=== PATIENT | male | born 1940 | race Caucasian/White ===

== ENCOUNTER 2021-01-15 21:06 | Emergency (ER) | payer MEDICARE, MEDICAID, OTHER, SELFPAY ==
--- NOTE | ~2021-01-15 | CT_ITS ---
EXAMINATION: NONCONTRAST HEAD CT NONCONTRAST CERVICAL SPINE CT INDICATION INFORMATION: Fall COMPARISON: None TECHNIQUE: Separate noncontrast CT examinations of the head and cervical spine were performed. Coronal and sagittal images were created for each examination at the technologist workstation. This CT examination was performed using dose optimization techniques as appropriate, variously including the following: *Automated exposure control *Adjustment of mA and/or kV according to patient size (this includes techniques or standardized protocols for targeted exams where dose is matched to indication/reason for exam; i.e. extremities or head) *Use of iterative reconstruction technique DLP: 1514 mGy-cm FINDINGS: Head: There is no evidence of acute intracranial hemorrhage or territorial infarction. No abnormal mass effect or midline shift is seen. Abarac to white matter differentiation is well preserved. No extra-axial fluid collections are identified. No hydrocephalus. Proportional prominence of the ventricles and sulcal spaces is consistent with mild volume loss. Patchy periventricular and deep white matter hypoattenuation is consistent with mild small vessel ischemic changes. There is left supraorbital swelling with laceration. No calvarial fracture.. The mastoid air cells and visualized portions of the paranasal sinuses are well aerated. Cervical spine: There is anatomic alignment of the vertebral bodies and posterior elements. The atlantoaxial and atlantooccipital articulations are intact. Vertebral body heights are maintained. There is multilevel intervertebral disc space narrowing with endplate osteophyte formation and facet arthropathy. No evidence of acute fracture. No prevertebral soft tissue swelling. Visualized portions of the lung apices are unremarkable. The thyroid gland is unremarkable. CT/CT cervical spine wo con IMPRESSION: 1. No acute intracranial finding. Left supraorbital laceration. 2. No fracture or malalignment of the cervical spine. Moderate degenerative change.
[2021-01-15 21:36] VITALS: BP 174/87; PULSE 88; RESP 18; TEMP 36.6; O2SAT 98; BMI 27.8
[2021-01-15 21:56] VITALS: BP 174/87; PULSE 88; RESP 18; TEMP 36.7; O2SAT 98
[2021-01-15] MEDS: Lidocaine HCl 2 % MPF 5 ML VIAL SUBCUT (22:57)
--- NOTE | 2021-01-15 23:27 | ED.WOUNDLAC ---
HPI - Wound/Laceration General Chief Complaint: Wound/Laceration Stated Complaint: Fall/Lac Time Seen by Provider: 01/15/21 22:34 Source: patient Mode of arrival: ambulatory Limitations: no limitations History of Present Illness HPI narrative: Patient is a 80-year-old male past medical history of diabetes and hypertension who states he does take 81 mg of aspirin daily (denies any other blood thinners), states he tripped in the side[employer]k cement around 3:30 today cut his left forehead. It was an unwitnessed fall however the patient denies losing consciousness. He denies headache, dizziness, blurry vision, changes in his vision, neck pain back pain or any other complaints. Related Data Allergies Allergy/AdvReac Type Severity Reaction Status Date / Time No Known Allergies Allergy Verified 01/15/21 21:40 Review of Systems Review of Systems: Yes all other systems are reviewed and are negative ENT: Reports Normal hearing present Neurologic: Reports Normal hearing present COUNT INCLUDES THE [facility] Past Medical History Medical History Diabetes HTN (hypertension) Social History Social History Advance Directives: No Advance Directives Information Provided: Yes Physical Exam Vital Signs: Vital Signs: Last Vital Signs Temp 98.0 F 01/15/21 21:56 Pulse 88 01/15/21 21:56 Resp 18 01/15/21 21:56 BP 174/87 H 01/15/21 21:56 Pulse Ox 98 01/15/21 21:56 Body Mass Index 27.8 Const: General: cooperative, healthy appearing, comfortable and no acute distress Nutritional Appearance: average body habitus Orientation/consciousness: patient oriented x3 Limitations: no limitations HENMT: Head: Yes normocephalic, No Mar's sign, Yes contusion, Yes laceration (Left forehead 6 cm; of which 2cm superficial and 4cm is a deeper wound), No palpable skull fracture, No raccoon eyes and Yes periorbital ecchymosis Eyes: Other: mild Bruising and swelling around left eye and eyebrow Visual Abdalla: normal visual abdalla by confrontation Alignment and Position: alignment normal Conjunctivae: conjunctivae normal Sclerae: sclerae normal Corneas: corneas normal Pupils: Equal, round and reactive pupils present EOM: EOMs intact bilaterally Neck: Neck: Yes normal visual inspection, Yes full ROM and Yes supple Resp: Effort & Inspection: normal respiratory effort and able to speak in complete sentences Back/Spine/Pelvis: Cervical Spine: cervical ROM normal Thoracic/Lumbar Spine: thoracic and lumbar spine normal to inspection and thoraco-lumbar ROM normal Neuro: General: patient oriented x3 Cranial nerves: Yes CN's II-XII intact bilaterally, Yes Facial sensation intact/muscles of mastication intact, Yes Equal, round and reactive pupils present, Yes Bilaterally intact EOM present, Yes Nystagmus not present, Yes Normal facial strength present, Yes Midline tongue present, Yes Symmetric palate elevation present, Yes Normal hearing present, Yes Ability to bilaterally rotate head present and Yes Ability to bilaterally elevate shoulders present Cognition (Neuro): normal cognition Gait exam (Neuro): Normal gait present Procedures Laceration Laceration 1: Site: face (Left supraorbital) Side (If applicable): left Size (cm): 6 Description: linear Depth: simple, single layer Amount of anesthesia used (mL): 3 Pre-repair: wound explored and irrigated extensively Skin layer closed with: vicryl Size (cm): 6-0 Number of sutures: 4 Technique: simple, interrupted MDM - Wound/Laceration Imaging Data CT scan - head: Attestation: I personally reviewed and interpreted this imaging study as follows: Radiologist's impression: [address] [place], [place] [address]DU Scan ReportSigned Patient: Clayton Saez Jr [facility]#: [id number]: 2Acct:[id number]/Sex: 80 / MADM Date: 01/15/21Loc: Lv Dr: Ordering Physician: Dimple Henriquez PA-C Date of Service: 01/15/21 Procedure(s): CT cervical spine wo con Accession Number(s): [id number] cc: Dimple Henriquez PA-C~ EXAMINATION: NONCONTRAST HEAD CT NONCONTRAST CERVICAL SPINE CT INDICATION INFORMATION: Fall COMPARISON: None TECHNIQUE: Separate noncontrast CT examinations of the head and cervical spine were performed. Coronal and sagittal images were created for each examination at the technologist workstation. This CT examination was performed using dose optimization techniques as appropriate, variously including the following: *Automated exposure control *Adjustment of mA and/or kV according to patient size (this includes techniques or standardized protocols for targeted exams where dose is matched to indication/reason for exam; i.e. extremities or head) *Use of iterative reconstruction technique DLP: 1514 mGy-cm FINDINGS: Head: There is no evidence of acute intracranial hemorrhage or territorial infarction. No abnormal mass effect or midline shift is seen. Abarca to white matter differentiation is well preserved. No extra-axial fluid collections are identified. No hydrocephalus. Proportional prominence of the ventricles and sulcal spaces is consistent with mild volume loss. Patchy periventricular and deep white matter hypoattenuation is consistent with mild small vessel ischemic changes. There is left supraorbital swelling with laceration. No calvarial fracture.. The mastoid air cells and visualized portions of the paranasal sinuses are well aerated. Cervical spine: There is anatomic alignment of the vertebral bodies and posterior elements. The atlantoaxial and atlantooccipital articulations are intact. Vertebral body heights are maintained. There is multilevel intervertebral disc space narrowing with endplate osteophyte formation and facet arthropathy. No evidence of acute fracture. No prevertebral soft tissue swelling. Visualized portions of the lung apices are unremarkable. The thyroid gland is unremarkable. CT/CT cervical spine wo con IMPRESSION: 1. No acute intracranial finding. Left supraorbital laceration. 2. No fracture or malalignment of the cervical spine. Moderate degenerative change. Dictated By:Daquan Sanchez MDSigned By:<Electronically signed by Daquan Sanchez MD in OV>01/15/21 2318 DD/ 2235TD/TT: Official Greeter: NILDA Discharge Plan Discharge Clinical Impression: Laceration Patient Disposition: Home, Self-Care Instructions: Head Injury (ED) Additional Instructions: As discussed, please be aware of red flag warning signs and when to return to the emergency department, sudden change and hearing, vision, acute onset of a headache, dizziness, nausea or vomiting. Please see attached instructions on monitoring yourself over the next few days to weeks. Please have the sutures removed in 5-7 days, you can do this at your PCP's office or any urgent care or emergency department. We have also given you a tetanus shot today.
[2021-01-15] MEDS: Diphth,Pertus(ACell),Tet Adult 0.5 ML SYRINGE IM (23:43)
== END 2021-01-16 00:06 | disposition home or self-care (01) ==
PROVIDERS: Emergency Provider Internal Medicine; PCP Student in an Organized Health Care Education/Training Program
DX: S01.81XA Laceration without foreign body of other part of head, initial encounter (principal); W10.1XXA Fall (on)(from) sidewalk curb, initial encounter; E11.9 Type 2 diabetes mellitus without complications; I10 Essential (primary) hypertension; Y93.01 Activity, walking, marching and hiking; Y92.414 Local residential or business street as the place of occurrence of the external cause; Y99.9 Unspecified external cause status
CPT/HCPCS: 12014; 70450; 72125; 90471; 90715; 99284

== ENCOUNTER 2021-07-23 09:32 | Outpatient (REF) | payer MEDICARE, MEDICAID, SELFPAY ==
--- NOTE | 2021-07-23 15:06 | MHC.AU.ANR ---
Adult Audiological Evaluation Date of Visit: 07/23/21 Reason for Appointment: Audiological evaluation due to concern for decreased hearing. Mr. Saez reports that his hearing has been gradually decreasing. He notes that he has to turn the TV up and often asks for repetition because he can't understand what people are saying. 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 Mr. Saez also notes that he had earwax flushed from his ears yesterday at his PCP's office. Does patient feel they have a hearing loss?: Yes If Yes, Which Ear?: Both Ears When Was Hearing Difficulty First Noticed?: ~5 years ago Has hearing been tested previously?: No Hearing Handicap Inventory: HHIE SCORE: 36 Based on HHIE score, patient has: Severe perceived hearing handicap Ear History: Family History of Hearing Loss?: Yes: Mother History of Ear Wax Buildup: Both Ears History of occupational noise exposure?: Yes: DJ Medical History: Medical History: Diabetes, High Blood Pressure Medication List: Metformin, medication for hypertension, Aspirin 81 mg Otoscopy: Right Ear: Partially occluding cerumen removed w/suction. White, opaque TM Left Ear: Completely occluding cerumen removed with suction Tympanometry: Tympanometry performed due to: To assess integrity of the middle ear system Right Ear: Reduced Middle Ear Compliance (Type As) Left Ear: Normal Middle Ear System (Type A) Hearing Evaluation: Transducer(s) Used: Insert Earphones Method: Conventional Audiometry Stimuli Used: Pure Tones Right Ear: Description of Hearing: Moderate sloping to severe sensorineural hearing loss from 250-8000 Hz. Left Ear: Description of Hearing: Moderate sloping to severe sensorineural hearing loss from 250-8000 Hz. Speech Recognition Threshold (SRT): Method Used: Monitored Live Voice Stimuli Used: Spondee Words Right Ear: 55 dBHL Left Ear: 55 dBHL Word Discrimination: Method: Recorded Lists Word Lists Used: NU-6 Right Ear: 64% at 90 dBHL Left Ear: 64% at 90 dBHL Most Comfortable Level (MCL): Right Ear: 90 dBHL Left Ear: 90 dBHL Recommendations: Audiological re-evaluation in one year. Trial with amplification is recommended. Binaural hearing aid use is highly recommended based on the degree of Mr. Saez's hearing loss. Discussed hearing aid options. It was recommended that he contact his health insurance company to find out of he has any hearing aid benefits, and if he does, where he can go to use those benefits. Mr. Saez's binaural speech understanding scores were significantly improved compared to his monaural scores, therefore it is important for Mr. Saez to use hearing aids in both ears. Advised that he would likely benefit more from a pair of l lower level technology hearing aids, rather than one more advanced technology hearing aid. Mr. Saez was welcomed to return to further discuss hearing aids if he decides he would like to purchase hearing aids through our clinic. Diagnosis: Primary Diagnosis: H90.3 Bilateral Sensorineural Hearing Loss Secondary Diagnosis: H61.23 Impacted Cerumen, Bilateral Services Performed: Services Performed: Comprehensive Audiological Evaluation (CPT 32322) Tympanometry (CPT 25901) Signature: Provider: Rachel Viveros, CCC-A
--- NOTE | 2021-07-23 15:08 | MHC.AU.MED ---
Medical Clearance for Hearing Instrumentation Date: 07/24/21 Patient Name: Clayton Saez Jr Date of : 1940 Referring Provider: Mary Grace Chino NP We have seen your patient on 07/24/21 and have determined that they are a candidate for amplification (See accompanying report). Specifically, they would benefit from: Hearing aid use in both ears There is a statute that addresses Medical Evaluation Requirements prior to fitting a patient with a hearing aid. According to [place] statute [facility] CMR:6.03(1), (a) General. Except as provided in 265 CMR 6.03(1)(b), a city superintendent of schools shall not sell a hearing aid unless the prospective user has presented to the city superintendent of schools a written statement signed by a licensed physician that states that the patient's hearing loss has been medically evaluated and the patient may be considered a candidate for a hearing aid. The medical evaluation must have taken place within the preceding six months. Please note: Due to the [place] Statute referenced above, we cannot accept a signature other than that of a licensed physician. SHOE SALESPERSON and BLAIR signatures cannot be accepted. I am in agreement with the above recommendation. There is no medical contraindication for hearing instrumentation. Physician Signature Date Physician Name (Printed)
== END 2021-07-23 09:33 | disposition home or self-care (01) ==
LOC: HO.SH 09:32
PROVIDERS: Visit Provider Nurse Practitioner Primary Care
DX: H90.3 Sensorineural hearing loss, bilateral (principal); H61.23 Impacted cerumen, bilateral
CPT/HCPCS: 92557; 92567

== ENCOUNTER 2023-05-19 09:39 | Outpatient (REF) | payer MEDICARE, MEDICAID, SELFPAY ==
[2023-05-19 11:30] LABS: MANUAL DIFF FLAG NO
[2023-05-19 11:45] LABS: Basophils Percent Auto 0.6 % (0-2); Eosinophils Absolute Auto 0.3 X10*3/uL (0.0-0.4); Eosinophils Percent Auto 4.3 % (0-4); Hematocrit 39.7 % (42.0-52.0); Hemoglobin 13.4 g/dl (14.0-18.0); Imm Gran Abs Auto 0.06 X10*3/uL (0.00-0.03); Imm Gran Pct Auto 0.9 % (0.0-0.4); Lymphocytes Absolute Auto 1.6 X10*3/uL (1.2-4.9); Mean Corpuscular HGB Conc 33.8 g/dl (31.0-36.0); Mean Corpuscular Hemoglobin 30.7 pg (27.0-33.0); Mean Corpuscular Volume 90.8 fL (80.0-98.0); Mean Platelet Volume 11.3 fL (9.4-12.4); Monocytes Absolute Auto 0.6 X10*3/uL (0.1-1.2); Monocytes Percent Auto 9.5 % (2-11); Neutrophils Absolute Auto 4.2 x10*3/uL (2.0-8.3); Neutrophils Percent Auto 61.7 % (45-73); Platelet Count 189 X10*3/uL (160-400); Red Blood Count 4.37 X10*6/uL (4.60-5.80); Red Cell Distribution Width 12.4 % (11.0-16.0); White Blood Count 6.8 X10*3/uL (4.8-10.8)
[2023-05-19 12:19] LABS: Anion Gap 14 (12-20); Blood Urea Nitrogen 27 mg/dL (9-16); Calcium 9.5 mg/dL (8.4-10.2); Carbon Dioxide 22 mmol/L (22-29); Chloride 104 mmol/L (96-108); Estimated Glomerular Filt Rate 46; Potassium 4.7 mmol/L (3.3-5.1); Sodium 135 mmol/L (135-145); Uric Acid 5.8 mg/dL (3.4-7.0)
[2023-05-19 12:24] LABS: Vitamin D 25-OH Total 40.5 ng/mL (>30)
[2023-05-19 13:12] LABS: Creatinine Urine 130.65 mg/dL
[2023-05-19 13:40] LABS: Appearance Urine Clear; Color Urine Yellow; Glucose Urine UA Negative (Negative); Leukocyte Esterase Urine Negative (Negative); Nitrite Urine Negative (Negative); Urine Blood Negative (Negative); Urine Ketones Trace mg/dL (Negative); Urine Protein >=1000 (4+) mg/dL (Neg-Trace)
[2023-05-19 13:49] LABS: Bacteria Urine None Seen (None Seen); Hyaline Casts Urine 0-2 /LPF (0-2); RBC Urine 0-2 /HPF (0-2); Squamous Epithelial Cell Urine 0-2 /HPF (0-2); WBC Urine 0-5 /HPF (0-5)
[2023-05-19 13:52] LABS: Protein/Creatinine Ratio, Ur 3.81 (<0.2); Total Protein Urine Random 498 mg/dL (<12)
== END 2023-05-19 09:40 | disposition home or self-care (01) ==
LOC: HO.HHCL 09:39
PROVIDERS: PCP Nurse Practitioner Primary Care; Visit Provider Physician Assistant
DX: N18.31 Chronic kidney disease, stage 3a (principal); E55.9 Vitamin D deficiency, unspecified
CPT/HCPCS: 36415; 80051; 81001; 82306; 82310; 82565; 84156; 84520; 84550; 85025

== ENCOUNTER 2023-12-09 09:49 | Outpatient (REF) | payer MEDICARE, SELFPAY ==
[2023-12-09 11:31] LABS: Appearance Urine Clear; Color Urine Yellow; Glucose Urine UA >=1000 mg/dL (Negative); Leukocyte Esterase Urine Negative (Negative); Nitrite Urine Negative (Negative); PH 6.5 (5.0-9.0); Specific Gravity - Urine 1.025 (1.005-1.025); UMIC TRIGGER UA YES; Urine Blood Negative (Negative); Urine Ketones Trace mg/dL (Negative); Urine Protein 300 (3+) mg/dL (Neg-Trace)
[2023-12-09 11:36] LABS: Bacteria Urine None Seen (None Seen); Hyaline Casts Urine 0-2 /LPF (0-2); RBC Urine 0-2 /HPF (0-2); Squamous Epithelial Cell Urine 0-2 /HPF (0-2); WBC Urine 0-5 /HPF (0-5)
[2023-12-09 11:41] LABS: MANUAL DIFF FLAG NO
[2023-12-09 11:47] LABS: Basophils Absolute Auto 0.1 X10*3/uL (0.0-0.2); Basophils Percent Auto 0.8 % (0-2); Eosinophils Absolute Auto 0.3 X10*3/uL (0.0-0.4); Eosinophils Percent Auto 4.3 % (0-4); Hematocrit 45.6 % (42.0-52.0); Hemoglobin 15.1 g/dl (14.0-18.0); Imm Gran Abs Auto 0.07 X10*3/uL (0.00-0.03); Imm Gran Pct Auto 0.9 % (0.0-0.4); Lymphocytes Absolute Auto 2.1 X10*3/uL (1.2-4.9); Mean Corpuscular HGB Conc 33.1 g/dl (31.0-36.0); Mean Corpuscular Hemoglobin 30.4 pg (27.0-33.0); Mean Corpuscular Volume 91.9 fL (80.0-98.0); Mean Platelet Volume 11.2 fL (9.4-12.4); Monocytes Absolute Auto 0.7 X10*3/uL (0.1-1.2); Monocytes Percent Auto 8.5 % (2-11); Neutrophils Absolute Auto 4.7 x10*3/uL (2.0-8.3); Neutrophils Percent Auto 59.5 % (45-73); Platelet Count 232 X10*3/uL (160-400); Red Blood Count 4.96 X10*6/uL (4.60-5.80); Red Cell Distribution Width 13.2 % (11.0-16.0); White Blood Count 7.9 X10*3/uL (4.8-10.8)
[2023-12-09 12:02] LABS: Estimated Average Glucose 126 mg/dL
[2023-12-09 12:10] LABS: Anion Gap 16 (12-20); Blood Urea Nitrogen 29 mg/dL (9-16); Calcium 9.8 mg/dL (8.4-10.2); Carbon Dioxide 24 mmol/L (22-29); Chloride 103 mmol/L (96-108); Cholesterol 187 mg/dL (<200); Estimated Glomerular Filt Rate 41; HDL Cholesterol 53 mg/dL (>40); Iron 103 mcg/dL (45-160); LDL Cholesterol Calculated 105 mg/dL (<100); Magnesium 1.6 mg/dL (1.6-2.6); Percent Iron Saturation 30 % (15-50); Potassium 4.7 mmol/L (3.3-5.1); Sodium 138 mmol/L (135-145); Total Iron Binding Capacity 347 mcg/dL (228-428); Triglycerides 149 mg/dL (<150); Unsaturated Iron Binding 244 ug/dL
[2023-12-09 12:25] LABS: Vitamin D 25-OH Total 45.3 ng/mL (>30)
[2023-12-09 12:35] LABS: Parathyroid Hormone Intact 141.2 pg/mL (8.7-77.1)
[2023-12-09 12:49] LABS: Creatinine Urine 92.73 mg/dL
[2023-12-09 13:09] LABS: Protein/Creatinine Ratio, Ur 3.17 (<0.2); Total Protein Urine Random 294 mg/dL (<12)
== END 2023-12-09 09:50 | disposition home or self-care (01) ==
LOC: HO.HHCL 09:49
PROVIDERS: Visit Provider Physician Assistant
DX: Z13.89 Encounter for screening for other disorder (principal)
CPT/HCPCS: 36415; 80051; 80061; 81001; 82306; 82310; 82565; 82570; 83036; 83540; 83735; 83970; 84156; 84520; 85025

== ENCOUNTER 2024-06-29 10:11 | Outpatient (REF) | payer MEDICARE, SELFPAY ==
[2024-06-29 12:20] LABS: Valproate 64.7 mcg/mL (50.0-100.0)
[2024-06-29 12:59] LABS: Alanine Aminotransferase 15 U/L (0-40); Albumin Level 4.5 g/dL (3.5-5.0); Alkaline Phosphatase 67 U/L (39-117); Aspartate Amino Transferase 21 U/L (5-37); Bilirubin Direct 0.2 mg/dL (0.0-0.5); Bilirubin Total 0.5 mg/dL (0.0-1.0); Cholesterol 207 mg/dL (<200); HDL Cholesterol 53 mg/dL (>40); LDL Cholesterol Calculated 120 mg/dL (<100); Total Protein 7.5 g/dL (6.5-8.0); Triglycerides 172 mg/dL (<150)
== END 2024-06-29 10:12 | disposition home or self-care (01) ==
LOC: HO.HHCL 10:11
PROVIDERS: Visit Provider Nurse Practitioner Primary Care
DX: E11.9 Type 2 diabetes mellitus without complications (principal); E78.5 Hyperlipidemia, unspecified; E78.00 Pure hypercholesterolemia, unspecified; F31.9 Bipolar disorder, unspecified
CPT/HCPCS: 36415; 80061; 80076; 80164

== ENCOUNTER 2025-07-25 10:20 | Outpatient (AMB) | payer MEDICARE, MEDICAID, SELFPAY ==
[2025-07-25 10:32] VITALS: BP 158/70; PULSE 58; O2SAT 96; BMI 27.1
--- NOTE | 2025-07-25 10:32 | HO.NEPHOV ---
Vital Signs 07/25/25 10:32 Height 6 ft Weight 200 lb BMI 27.1 BP 158/70 H Blood Pressure Location Lt brachial Position Sitting Pulse 58 Pulse Source Pulse Oximeter Pulse Oximetry (%) 96 Oxygen Delivery Method Room Air Intake Visit Reasons: ENP: CKD STG 3, confirmed Leak Detection Engineer Required: No Accompanied by: Spouse Allergies No Known Allergies Allergy (Verified 07/25/25 10:34) Medication List - Last Reconciled 07/25/25 by Christopher Montanez MD aspirin 81 mg PO DAILY atorvastatin 80 mg PO DAILY empagliflozin (Jardiance) 25 mg PO DAILY losartan 100 mg PO DAILY metformin 1,000 mg PO BID nifedipine ER 90 mg PO DAILY omega-3 acid ethyl esters 1 cap PO BID valproic acid 500 mg PO BID HPI Comments Details: The patient is an 85-year-old male referred for evaluation of CKD He was previously seen by 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 He has been referred to reestablish renal care. History of diabetes mellitus for more than 20 years. Complicated by non proliferative diabetic retinopathy. The patient also reports a history of glaucoma, History of bipolar disorder but denies taking any lithium [facility] Medical History (Updated 07/25/25 @ 10:44 by Christopher Montanez MD) Type 2 diabetes mellitus with hyperlipidemia Proteinuria Hypertensive heart disease without CHF (congestive heart failure) Hypolipidemia Diabetic nephropathy associated with type 2 diabetes mellitus Stage 3 chronic kidney disease Edentulous Arthropathy Pure hypercholesterolemia Impacted cerumen Bipolar disorder Diabetes HTN (hypertension) Review of Systems Const Denies fever(s) and Denies weight loss ENT Details: Hard of hearing Card Denies chest pain Resp Denies cough and Denies hemoptysis GI Denies abdominal pain, Denies diarrhea and Denies nausea Musc Denies back pain Neuro Denies focal weakness Physical Exam Vital Signs: Last Vital Signs Pulse 58 07/25/25 10:32 BP 158/70 H 07/25/25 10:32 Pulse Ox 96 07/25/25 10:32 Oxygen Delivery Method Room Air 07/25/25 10:32 BMI result Body Mass Index 27.1 Hard of hearing Comfortable Neck supple no JVD. Lungs entry equal no rales. Heart S1-S2 heard no gallop or rub. Abdomen soft nontender. Neuro alert awake oriented. No asterixis. Extremities no edema. Results Reviewed Nephrology Results: Hgb, (14.0-18.0) 15.1 g/dl 24 WBC, (4.8-10.8) 7.9 X10*3/uL 24 Plt Count, (160-400) 232 X10*3/uL /24 Sodium, (135-145) 138 mmol/L /24 Potassium, (3.3-5.1) 4.7 mmol/L 24 Chloride, (96-108) 103 mmol/L 24 Carbon Dioxide, (22-29) 24 mmol/L 24 BUN, (9-16) 29 mg/dL H 24 Creatinine, (0.5-1.4) 1.64 mg/dL H 24 Calcium, (8.4-10.2) 9.8 mg/dL /24 PTH Intact, (8.7-77.1) 141.2 pg/mL H 24 Urine Protein, (Neg-Trace) 300 (3+) mg/dL H 24 Urine Creatinine 92.73 mg/dL 24 Protein/Creatinin Ratio, (<0.2) 3.17 H 24 Assessment & Plan Assessment & Plan (1) Stage 3 chronic kidney disease: Code(s): N18.30 - Chronic kidney disease, stage 3 unspecified Category: Medical Plan Elderly man with longstanding diabetes mellitus and hypertension with chronic kidney disease. Based on history he has stage III CKD. Baseline needs to be determined. Goal is to slow the progression of renal disease. Discussed importance of control of blood sugar and maintaining A1c less than 7%. Maintain blood pressure less than 130/80. Agree with current dose of losartan for renal protection along with Jardiance. Baseline workup ordered as below. You returned to the office once the workup is completed I will keep you updated. Orders: Orders Complete Blood Count Auto Diff Today N18.30 - Chronic kidney disease, stage 3 unspecified Parathyroid Hormone Intact Today N18.30 - Chronic kidney disease, stage 3 unspecified Total Protein Urine Random Today N18.30 - Chronic kidney disease, stage 3 unspecified US renal BI Today N18.30 - Chronic kidney disease, stage 3 unspecified Comprehensive Met. Panel Today N18.30 - Chronic kidney disease, stage 3 unspecified Creatinine Urine Today N18.30 - Chronic kidney disease, stage 3 unspecified Vitamin D 25-OH Total Today N18.30 - Chronic kidney disease, stage 3 unspecified UA and rflx microscopic Today N18.30 - Chronic kidney disease, stage 3 unspecified Osmolality, Serum Today N18.30 - Chronic kidney disease, stage 3 unspecified Coding Level of Care Code New Pt Level 4 (96725) Diagnoses Stage 3 chronic kidney disease N18.30
--- OUTSIDE RECORDS SUMMARY | 2025-07-25 12:31 | XMS_ITS | Encounter Summary ---
Author Organization [employer] Address [address] [place] [address] Care Team Providers Care Link Fabric Machine Operator Name Role Phone Mary Grace Chino Primary Care Provider [phone] Km Mooney Unavailable Encounter Details Date Type Department Care Team (Late st Contact Info) Description 11/11/2022 Orders Only [facility] MEDICINE [address] [place] [address] Irina Hunt, RN [address] [place] [address] Social History Tobacco Use Types Packs/Day Years Used Date Smoking Tobacco: Never Assessed Sex and Gender Information Value Date Recorded Sex Assigned at Male 07/26/2022 10:17 AM EDT Legal Sex Male 10:17 AM EDT Gender Identity Male 07/26/2022 10:17 AM EDT Sexual Orientation Straight 07/26/2022 10 :17 AM EDT documented as of this encounter Plan of Treatment Not on file documented as of this encounter Visit Diagnoses Not on filedocumented in this encounter Care Teams Link Fabric Machine Operator Relationship Specialty Start Date End Date Mary Grace Chino ANP [address] [place] [address] PCP - General Family Medicine 03/11/21 Km Mooney [address] [place], [place] [address] [address] 01/11/25 01/11/25 documented as of this encounter
--- OUTSIDE RECORDS SUMMARY | 2025-07-25 12:31 | XMS_ITS | Encounter Summary ---
Author Organization [employer] Address [address] [place] [address] Care Team Providers Care Hydrogen Cell Tender Name Role Phone Mary Grace Chino Primary Care Provider [phone] Km Mooney Unavailable Reason for Visit * Reason Comments Med Refill Encounter Details Date Type Department Care Team ([facility] Contact Info) Description 12/18/2024 Refill [facility] MEDICINE [address] [place] [address] Mary Grace Chino ANP [address] [place] [address] Social History Tobacco Use Types Packs/Day Years Used Date Smoking Tobacco: Never Smokeless Tobacco: Never Alcohol Use Standard Drinks/Week Comments Not Currently 0 (1 standard drink = 0.6 oz pur e alcohol) Depression Answer Date Recorded Patient Health Questionnaire-9 Score 0 05/10/2024 Patient Health Questionnaire-9 Score 0 05/10/2024 Last PHQ-9: Questionnaire Data Not on file 0 05/10/2024 Housing Stability Answer Date Recorded What is your housing situation today? I have ana gooden 05/10/[address] you li ve. Do you have problems with any of the following? Not on file 05/10/2024 Food Insecurity Answer Date Recorded Within the past 12 months, y ou worried that your food would run out before you got money to buy more: Never True 08/02/2023 Within the past 12 months,th e food you bought just didn't last and you didn't have enough money to get more: Never True 03/2023 Transportation Answer Date Recorded In the past 12 months, has l ack of transportation kept you from medical appts, meetings, work or from getting things needed for daily living? No 08/02/2023 Utilities Answer Date Recorded In the past 12 months, has t he electric, gas, oil or water company threatened to shut off services in your home? No 08/02/2023 Depression Answer Date Recorded Patient Health Questionnaire-2 Score 0 05/10/2024 Sex and Gender Information Value Date Recorded Sex Assigned at Male 07/26/2022 10:17 AM EDT Legal Sex Male 10:17 AM EDT Gender Identity Male 07/26/2022 10:17 AM EDT Sexual Orientation Straight 07/26/2022 10 :17 AM EDT documented as of this encounter Plan of Treatment Not on file documented as of this encounter Visit Diagnoses Not on filedocumented in this encounter Additional Health Concerns Assessment Noted Time PHQ-9 Depression Total Score: 0 05/10/20 24 9:40 AM EDT documented as of this encounter Care Teams Hydrogen Cell Tender Relationship Specialty Start Date End Date Mary Grace Chino ANP [address] [place] [id number] PCP - General Family Medicine 03/11/21 Km Mooney [address] [place] [id number] 01/11/25 01/11/25 documented as of this encounter
--- OUTSIDE RECORDS SUMMARY | 2025-07-25 12:31 | XMS_ITS | Clinical Summary ---
Author Organization [employer] Address [address] [facility] [address] [place] [address] Care Team Providers Care Railway Equipment Operator Name Role Phone Mary Grace Chino YUDITH Primary Care Provider [phone] Allergies Active Allergy Reactions Criticality Noted Date Comments Lisinopril Angioedema 04/02/2021 Medications glucose blood (FREESTYLE LITE) test strip every 12 (twelve) hours. 07/28/20 20 Active zoster vaccine-recombinan t adjuvanted (Shingrix) 50 MCG/0.5ML vaccine Inject 0.5 mL into the shoulder, thigh, or buttocks. 08/10/20 21 Active losartan (Cozaar) 100 MG tablet Take 100 mg by mouth in the morning. 12/01/19 23 Active atorvastatin (Lipitor) 80 MG tabletIndications: Type 2 diabetes mellitus with hyperlipidemia (HCC) Take 1 tablet (80 mg) by mouth Once per day. 90 tablet 3 09/13/20 24 025 Active Jardiance 25 MG td1t BY MOUTH ONCE DAILY IN THE MORNING 07/23/20 24 Active NIFEdipine XL (Procardia XL) 90 MG 24 hr tablet TAKE 1 TABLET BY MOUTH EVERY DAY FOR BLOOD PRESSURE 90 tablet 2 10/31/19 25 Active valproic acid (Depakene) 250 MG capsuleIndications :Bipolar affective disorder, remission status unspecified (CMS/HCC) (HCC) Take 2 capsules (500 mg) by mouth 2 times daily. 360 capsule 3 12/19/19 25 Active triamcinolone (Kenalog) 0.1 % creamIndications:S eborrheic dermatitis Apply topically 2 times daily. For 2 weeks 45 g 01/11/20 25 Active omega-3 acid ethyl esters (Lovaza) 1 g capsuleIndications :Hypertriglyceride edinson Take 1 capsule (1 g) by mouth 2 times daily. 180 capsule 3 01/12/20 25 026 Active ketoconazole (NIZOral) 2 % creamIndications:S eborrheic dermatitis APPLY TOPICALLY TO THE AFFECTED AREA(S) EVERY DAY DIRECTED 60 g 1 03/28/20 25 Active metFORMIN (Glucophage) 1000 MG tablet TAKE 1 TABLET BY MOUTH TWICE DAILY 180 tablet 1 04/02/20 25 Active polyethylene glycol, PEG, 3350 (MiraLax) 17 GM/SCOOP powderIndications: Constipation, unspecified constipation type Mix 17g into juice or water once daily for up to 3 days, use as needed for constipation 238 g 07/18/20 25 Active senna-docusate sodium (Senokot-S) 8.6-50 MG tabletIndications: Constipation, unspecified constipation type Take 1 tablet by mouth Once per day. 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 Jacques 07/02/2024 Hypertensive retinopathy of both eyes 07/18/2025 Primary open angle glaucoma (POAG) of left eye, severe stage 07/18/2025 Overview (07/18/2025): follows w/ Dr. [facility] at [facility], encouraged to use gtts as rx'd Primary open angle glaucoma (POAG) of right eye, moderate stage 07/18/2025 Overview (07/18/2025): follows w/ Dr. 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 03/05/2022 Hyperlipidemia 03/05/2022 Hypertensive heart disease without congestive he art failure 03/05/2022 Stage 3 chronic kidney disease (CMS/HCC) 021 Edentulous 01/08/2014 Arthropathy 10/11/2011 Essential hypertension 10/06/2011 Pure hypercholesterolemia 07/30/2011 Impacted cerumen 09/05/2009 Bipolar disorder 02/21/2009 Encounters Date Type Department Care Team Description 07/18/2025 2:30 PM EDT Office Visit [facility] [address] [place] [id number] Mary Grace Chino ANP Type 2 diabetes mellitus with hyperlipidemia (HCC) (Primary Dx); Constipation, unspecified constipation type; 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 (HCC); Hypertensive retinopathy of both eyes; Diabetic nephropathy associated with type 2 diabetes mellitus (HCC); Dietary counseling; Exercise counseling; Bipolar affective disorder, remission status unspecified (CMS/[facility]) (HCC); Stage 3 chronic kidney disease, unspecified whether stage 3a or 3b CKD (CMS/HCC) (HCC); Primary open angle glaucoma (POAG) of left eye, severe stage; Primary open angle glaucoma (POAG) of right eye, moderate stage 07/18/2025 Travel 07/16/2025 Telephone [facility] [address] [place] [address] Mary Grace Chino ANP chart prep 04/30/2025 Telephone [facility] [address] [place] [phone] Mary Grace Chino ANP June recall from Last 3 Months Immunizations Immunization Administration Dates Next Due Influenza High-dose Quadriva lent Preservative Free 06/15/2022,06/05/2021 Influenza Quadrivalent Adjuvanted 06/03/2023 Influenza injectable quadriv alent IIV4 with preservative 06/15/2016,07/03/2015 Influenza injectable quadriv alent preservative free 06/18/2018 Influenza, High Dose Seasona l, Preservative Free 07/13/2015 Influenza, IIV3, injectable 07/11/2014 Influenza, Split (incl. karen fied surface antigen) 06/18/2013,08/23/2012 Influenza, Unspecified 06/15/2022,06/05/2021, Influenza, seasonal, injecta ble, preservative free 05/29/2020 Influenza, trivalent, adjuvanted 06/08/2024,05/27 Moderna Covid-19 Vaccine 12+ 02/09/2022 Pfizer Covid-19 Vaccine 12+ 07/06/2024, Pneumococcal Conjugate PCV 13 10/07/2016 Pneumococcal Polysaccharide PPSV23 07/08/2021, RSV Bivalent 10/19/2024 Tdap 01/15/2021,10/29/2015 Zoster, Recombinant 03/17/2022,12/30/2021 Social History Tobacco Use Types Packs/Day Years Used Date Smoking Tobacco: Never Smokeless Tobacco: Never Tobacco Cessation:Counseling Given: Not Answered Alcohol Use Standard Drinks/Week Comments Not Currently 0 (1 standard drink = 0.6 oz pur e alcohol) Depression Answer Date Recorded Patient Health Questionnaire-9 Score 0 07/18/2025 Patient Health Questionnaire-9 Score 0 07/18/2025 Last PHQ-9: Questionnaire Data Not on file 1 Housing Stability Answer Date Recorded What is your housing situation today? I have ana gooden 07/18/[address] you li ve. Do you have problems with any of the following? None of the above 07/18/2025 Food Insecurity Answer Date Recorded Within the past 12 months, y ou worried that your food would run out before you got money to buy more: Sometimes True 2024 Within the past 12 months,th e food you bought just didn't last and you didn't have enough money to get more: Sometimes True 07/18/2025 Transportation Answer Date Recorded In the past 12 months, has l ack of transportation kept you from medical appts, meetings, work or from getting things needed for daily living? I am not sure 07/18/2025 Utilities Answer Date Recorded In the past 12 months, has t he electric, gas, oil or water company threatened to shut off services in your home? No 07/18/2025 Depression Answer Date Recorded Patient Health Questionnaire-2 Score 0 07/18/2025 Internet Access Answer Date Recorded Internet Access Q1 Yes 07/18/2025 Internet Access Q2 Not on file 07/18/2025 Sex and Gender Information Value Date Recorded Sex Assigned at Male 07/26/2022 10:17 AM EDT Legal Sex Male 10:17 AM EDT Gender Identity Male 07/26/2022 10:17 AM EDT Sexual Orientation Straight 07/26/2022 10 :17 AM EDT Last Filed Vital Signs Vital Sign Reading Time Taken Comments Blood Pressure 110/70 07/18/2025 2:58 PM EDT Pulse 58 07/18/2025 2:58 PM EDT Temperature 36.6 C (97.8 F) 07/18/2025 2:58 PM EDT Respiratory Rate 10 07/18/2025 2:58 PM EDT Oxygen Saturation 98% 07/18/2025 2:58 PM EDT Inhaled Oxygen Concentration - - Weight 89.8 kg (198 lb) 07/18/2025 2:58 PM EDT Height 180.3 cm (5' 11 ) 07/18/2025 2:58 PM EDT Body Mass Index 27.62 07/18/2025 2:58 PM EDT Plan of Treatment Health Maintenance Due Date Last Done Comments Diabetes: Foot Exam 05/10/2025 05/10/2024, 05/10/2024, 05/10/2024, Additional history exists Lipid Panel 06/29/2025 06/29/2024, 10/27, 03/20/2021 Diabetes: Hemoglobin A1C 10/18/2025 025, 01/10/2025, 09/13/2024, Additional history exists Eye Exam 12/10/2025 12/10/2024, 07/02/2024 Alcohol/Substance Use Screening 01/10/2026 01/10/2025 Depression Screening 07/18/2026 07/18/2025, 07/18/20 SDOH Screening 07/18/2026 07/18/2025 Tobacco Screening 07/18/2026 07/18/2025 DTaP/Tdap/Td Vaccines (3 - Td or Tdap) 01/15/2031 01/15/2021, 10/29/2015 Pneumococcal Vaccine: 50+ Years Completed 07/08/2021, 10/07/2016, 02/10/2015 Zoster Vaccines Completed 03/17/2022, 12/30/2021 RSV Patients and Patients Aged 60 years or older Completed 10/19/2024 Influenza Vaccine Completed 06/04/2025, , 06/03/2023, Additional history exists COVID-19 Vaccine Completed 07/05/2025, 07/2024, 07/01/2023, Additional history exists HIB Vaccines Aged Out No longer eligi ble based on patient's age to complete this topic HPV Vaccines Aged Out No longer eligi ble based on patient's age to complete this topic Hepatitis A Vaccines Aged Out No long er eligible based on patient's age to complete this topic Hepatitis B Vaccines Aged Out No long er eligible based on patient's age to complete this topic IPV Vaccines Aged Out No longer eligi ble based on patient's age to complete this topic Meningococcal B Vaccine Aged Out No l onger eligible based on patient's age to complete this topic Meningococcal Vaccine Aged Out No linda chantelle eligible based on patient's age to complete this topic RSV under 20 months Aged Out No longe r eligible based on patient's age to complete this topic Rotavirus Vaccines Aged Out No longer eligible based on patient's age to complete this topic Procedures Procedure Name Priority Date/Time Associated Diagnosis Comments POCT GLYCATED HEMOGLOBIN, TOTAL Routine 07/18/2025 3:02 PM EDT Type 2 diabetes mellitus with hyperlipidemia (HCC) POCT GLUCOSE Routine 07/18/2025 2:59 PM EDT Type 2 diabetes mellitus with hyperlipidemia (HCC) LIPID PANEL, STANDARD Routine 06/29/2024 10:18 AM EDT from Last 3 Months or Most Recently Relevant to Health Maintenance Results * (ABNORMAL) POCT Hgb A1c (07/18/2025 3:02 PM EDT) Hemoglobin A1C 7.4(A) 4.0 - 5.7 % QC Media Lot # [id number] Lot# Expiration Date [id number] Blood 07/18/2025 3:02 PM EDT [facility] POINT OF CARE TEST ENTER/EDIT OR DERABLES Final Result * (ABNORMAL) POCT Glucose (07/18/2025 2:59 PM EDT) Glucose Blood, POC 204(A) 60 - 200 mg/dL QC Media Lot # [id number] Lot# Expiration Date [id number] Blood Capillary blood specimen / Unknown 07/18/2025 2:59 PM EDT Mary Grace Chino ANP POINT OF CARE TEST ENTER/EDIT OR DERABLES Final Result * (ABNORMAL) Lipid Panel, Standard (06/29/2024 10:18 AM EDT) Triglycerides 172(H) <150 mg/dL [facility] Comment:Desirable Triglyceri de: less than 150 mg/dLBorderline High Triglyceride 150-199 mg/dLHigh Triglyceride: 200-499 mg/dLVery High Triglyceride: greater than or equal to 5OO mg/dL Cholesterol 207(H) <200 mg/dL [facility] Comment:Desirable Cholestero l: less than 200 mg/dLBorderline High Cholesterol: 200-239 mg/dLHigh Cholesterol: greater than 239 mg/dL LDL Cholesterol Calculated 120(H) <100 mg/dL [facility] Comment:Desirable LDL: less than 100 mg/dLNear Optimal/Above Optimal LDL: 110- 129 mg/dLBorderline High LDL: 130-159 mg/dLHigh LDL: 160-189 mg/dLVery High LDL: greater than or equal to 190 mg/dL HDL Cholesterol 53 >40 mg/dL [facility] Comment:Desirable HDL: great er than 40 mg/dL Note: This HDL assay may give artificially low results in patients with liver disease. 06/29/2024 10:1 8 AM EDT 06/29/2024 11:04 AM EDT us Mary Grace Chino ANP LAB BLOOD ORDERABLES Final Resul t [facility] [address] [place] [phone] from Last 3 Months or Most Recently Relevant to Health Maintenance Insurance HSN FULL [employer] MEDICARE REPLACEMENT Advance Directives Documents on File Type Date Recorded Patient Auto Mechanic Supervisor Expl anation Advance Directives and Living Will 01/15/2025 Health Care Proxy 01/14/25 Care Teams Railway Equipment Operator Relationship Specialty Start Date End Date Mary Grace Chino ANP [address] [place] [id number] PCP - General Family Medicine 03/11/21
== END 2025-07-25 12:10 | disposition home or self-care (01) ==
PROVIDERS: PCP Nurse Practitioner Primary Care; Referring Provider Nurse Practitioner Primary Care; Visit Provider Internal Medicine Hypertension Specialist
DX: N18.30 Chronic kidney disease, stage 3 unspecified (principal)
CPT/HCPCS: 99204

== ENCOUNTER 2025-07-25 10:57 | Outpatient (REF) | payer MEDICARE, MEDICAID, SELFPAY ==
[2025-07-25 11:19] LABS: MANUAL DIFF FLAG NO
[2025-07-25 11:30] LABS: Hematocrit 50.1 % (42.0-52.0); Hemoglobin 16.3 g/dl (14.0-18.0); Imm Gran Abs Auto 0.05 X10*3/uL (0.00-0.03); Imm Gran Pct Auto 0.6 % (0.0-0.4); Lymphocytes Absolute Auto 1.9 X10*3/uL (1.2-4.9); Mean Corpuscular HGB Conc 32.5 g/dl (31.0-36.0); Mean Corpuscular Hemoglobin 30.2 pg (27.0-33.0); Mean Corpuscular Volume 92.8 fL (80.0-98.0); NRBC Abs Auto 0.000 X10*3/uL (0.0-0.012); NRBC Pct Auto 0.0 /100WBC (0.0-0.2); Platelet Count 178 X10*3/uL (160-400); Red Blood Count 5.40 X10*6/uL (4.60-5.80); White Blood Count 8.1 X10*3/uL (4.8-10.8)
[2025-07-25 11:35] LABS: Appearance Urine Clear; Glucose Urine UA >=1000 mg/dL (Negative); PH 7.0 (5.0-9.0); Specific Gravity - Urine 1.010 (1.005-1.025); UMIC TRIGGER UA YES
[2025-07-25 11:57] LABS: Osmolality, Serum 297 mosm/kg (281-305)
[2025-07-25 12:08] LABS: Parathyroid Hormone Intact 63.9 pg/mL (8.7-77.1)
[2025-07-25 12:13] LABS: Total Protein Urine Random 98 mg/dL (<12)
[2025-07-25 12:16] LABS: Alanine Aminotransferase 22 U/L (0-40); Albumin Level 5.0 g/dL (3.5-5.0); Alkaline Phosphatase 77 U/L (39-117); Anion Gap 15 (12-20); Aspartate Amino Transferase 32 U/L (5-37); Blood Urea Nitrogen 29 mg/dL (9-16); Calcium 10.4 mg/dL (8.4-10.2); Carbon Dioxide 22 mmol/L (22-29); Chloride 101 mmol/L (96-108); Estimated Glomerular Filt Rate 39; Potassium 5.1 mmol/L (3.3-5.1); Sodium 133 mmol/L (135-145); Total Protein 8.1 g/dL (6.5-8.0)
== END 2025-07-25 10:58 | disposition home or self-care (01) ==
LOC: HO.10HDL 10:57
PROVIDERS: Visit Provider Internal Medicine Hypertension Specialist
DX: E11.22 Type 2 diabetes mellitus with diabetic chronic kidney disease (principal); I12.9 Hypertensive chronic kidney disease with stage 1 through stage 4 chronic kidney disease, or unspecified chronic kidney disease; N18.30 Chronic kidney disease, stage 3 unspecified; Z79.82 Long term (current) use of aspirin; Z79.84 Long term (current) use of oral hypoglycemic drugs
CPT/HCPCS: 36415; 80053; 81001; 82306; 82570; 83930; 83970; 84156; 85025; 99202

== ENCOUNTER 2025-08-09 10:28 | Outpatient (REF) | payer MEDICARE, MEDICAID, SELFPAY ==
--- NOTE | ~2025-08-09 | US_ITS ---
CLINICAL HISTORY: N18.30 - Chronic kidney disease, stage 3 unspecified US renal with Color Doppler Comparison: None Findings: Normal-size right kidney echogenic throughout with renal cortical thinning, 13.8 cm length. No hydronephrosis calculus or mass. Normal color flow. Renal cortical cysts as follows midpole 4.6 x 4.3 x 5.0 cm and 2.2 x 1.8 x 1.9 cm and lower pole 1.7 x 1.1 x 1.4 cm. Normal-size left kidney echogenic throughout with renal cortical thinning, 13.1 cm length. No hydronephrosis calculus or mass. Renal cortical cysts as follows upper pole measuring 1.3 x 1.2 x 1.4 cm and midpole measuring 1.4 x 1.2 x 1.2 cm, 0.9 x 0.9 x 0.9 cm and 3.4 x 3.0 x 3.2 cm. Impression: 1. Echogenic kidneys reflecting nonspecific medical renal disease with bilateral benign-appearing renal cortical cysts. This document has been electronically signed by: Gamal Fletcher MD on 08/10/2025 17:03:29
== END 2025-08-09 10:29 | disposition home or self-care (01) ==
LOC: HO.HMGCX 10:28
PROVIDERS: PCP Nurse Practitioner Primary Care; Visit Provider Internal Medicine Hypertension Specialist
DX: N18.30 Chronic kidney disease, stage 3 unspecified (principal)
CPT/HCPCS: 76775

== ENCOUNTER → 2025-08-09 10:30 | Outpatient (BNV) | payer MEDICARE, MEDICAID, SELFPAY | PROVIDERS: PCP Nurse Practitioner Primary Care; Visit Provider Radiology Diagnostic Radiology | DX: N18.30 Chronic kidney disease, stage 3 unspecified (principal) | CPT/HCPCS: 76775 ==

== ENCOUNTER 2025-09-02 11:54 | Outpatient (AMB) | payer MEDICARE, MEDICAID, SELFPAY ==
--- NOTE | 2025-09-02 12:06 | HO.NEPHOV ---
Vital Signs 09/02/25 12:07 09/02/25 12:20 Height 6 ft Weight 200 lb BMI 27.1 BP 170/82 H 130/70 Blood Pressure Location Rt brachial Rt radial Position Sitting Sitting Pulse 73 Pulse Source Pulse Oximeter Pulse Oximetry (%) 96 Oxygen Delivery Method Room Air Intake Visit Reasons: 6 wks f/u w/ labs-Conf Pattern Data Operator Required: No Accompanied by: Spouse Allergies No Known Allergies Allergy (Verified 09/02/25 12:08) Medication List - Last Reconciled 09/02/25 by Christopher Montanez MD aspirin 81 mg PO DAILY atorvastatin 80 mg PO DAILY empagliflozin (Jardiance) 25 mg PO DAILY losartan 100 mg PO DAILY metformin 1,000 mg PO BID nifedipine ER 90 mg PO DAILY omega-3 acid ethyl esters 1 cap PO BID valproic acid 500 mg PO BID HPI Comments Details: The patient is an 85-year-old male referred for evaluation of CKD He was previously seen by another superintendent operating who moved out of town. He has been referred to reestablish renal care. History of diabetes mellitus for more than 20 years. Complicated by non proliferative diabetic retinopathy. The patient also reports a history of glaucoma, History of bipolar disorder but denies taking any lithium 09/02/25 The patient is an 85 year old male presenting for a follow-up visit for management of chronic conditions. He has a history of hypertension, for which he takes medication, though his blood pressure was noted to be high at the visit. He has known kidney disease with significant proteinuria, which is a chronic issue. A recent ultrasound on the showed no blockage and some cysts, which were considered not worrisome and stable. He has a history of elevated calcium, which was also slightly elevated on recent labs. The patient denies any trouble breathing, nausea, vomiting, or urinary issues. [facility] Medical History (Updated 09/02/25 @ 12:23 by Christopher Montanez MD) Type 2 diabetes mellitus with hyperlipidemia Proteinuria Hypertensive heart disease without CHF (congestive heart failure) Hypolipidemia Diabetic nephropathy associated with type 2 diabetes mellitus Stage 3 chronic kidney disease Edentulous Arthropathy Pure hypercholesterolemia Impacted cerumen Bipolar disorder Diabetes HTN (hypertension) Physical Exam Vital Signs: Last Vital Signs Pulse 73 09/02/25 12:07 BP 130/70 09/02/25 12:20 Pulse Ox 96 09/02/25 12:07 Oxygen Delivery Method Room Air 09/02/25 12:07 BMI result Body Mass Index 27.1 Hard of hearing Comfortable Neck supple no JVD. Lungs entry equal no rales. Heart S1-S2 heard no gallop or rub. Abdomen soft nontender. Neuro alert awake oriented. No asterixis. Extremities no edema. Results Reviewed Results Reviewed: USG Findings: Normal-size right kidney echogenic throughout with renal cortical thinning, 13.8 cm length. No hydronephrosis calculus or mass. Normal color flow. Renal cortical cysts as follows midpole 4.6 x 4.3 x 5.0 cm and 2.2 x 1.8 x 1.9 cm and lower pole 1.7 x 1.1 x 1.4 cm. Normal-size left kidney echogenic throughout with renal cortical thinning, 13.1 cm length. No hydronephrosis calculus or mass. Renal cortical cysts as follows upper pole measuring 1.3 x 1.2 x 1.4 cm and midpole measuring 1.4 x 1.2 x 1.2 cm, 0.9 x 0.9 x 0.9 cm and 3.4 x 3.0 x 3.2 cm. Impression: 1. Echogenic kidneys reflecting nonspecific medical renal disease with bilateral benign-appearing renal cortical cysts. Nephrology Results: Hgb, (14.0-18.0) 16.3 g/dl 07/25/25 WBC, (4.8-10.8) 8.1 X10*3/uL 07/25/25 Plt Count, (160-400) 178 X10*3/uL 07/25/25 Sodium, (135-145) 133 mmol/L L 07/25/25 Potassium, (3.3-5.1) 5.1 mmol/L 07/25/25 Chloride, (96-108) 101 mmol/L 07/25/25 Carbon Dioxide, (22-29) 22 mmol/L 07/25/25 BUN, (9-16) 29 mg/dL H 07/25/25 Creatinine, (0.5-1.4) 1.67 mg/dL H 07/25/25 Calcium, (8.4-10.2) 10.4 mg/dL H Δ 07/25/25 PTH Intact, (8.7-77.1) 63.9 pg/mL 07/25/25 Urine Protein, (Neg-Trace) 100 (2+) mg/dL H 07/25/25 Urine Creatinine 22.49 mg/dL 07/25/25 Protein/Creatinin Ratio, (<0.2) 3.17 H 12/09/23 Renal US 08/10/25 Assessment & Plan Assessment & Plan (1) Stage 3 chronic kidney disease: Code(s): N18.30 - Chronic kidney disease, stage 3 unspecified Category: Medical (2) Hypercalcemia: Code(s): E83.52 - Hypercalcemia Category: Medical Plan Elderly man with longstanding diabetes mellitus and hypertension with chronic kidney disease. Based on history he has stage III CKD. 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 Discussed importance of control of blood sugar and maintaining A1c less than 7%. Maintain blood pressure less than 130/80. Agree with current dose of losartan for renal protection along with Jardiance. Orders: Orders Protein Electrophoresis, Serum 3 Months E83.52 - Hypercalcemia, N18.30 - Chronic kidney disease, stage 3 unspecified Basic Metabolic Panel 3 Months E83.52 - Hypercalcemia, N18.30 - Chronic kidney disease, stage 3 unspecified Complete Blood Count no Diff 3 Months E83.52 - Hypercalcemia, N18.30 - Chronic kidney disease, stage 3 unspecified Parathyroid Hormone Intact 3 Months E83.52 - Hypercalcemia, N18.30 - Chronic kidney disease, stage 3 unspecified Medications: New empagliflozin (Jardiance) 25 mg PO DAILY 90 tabs 1RF Coding Level of Care Code Est Pt Level 4 (78188) Diagnoses Stage 3 chronic kidney disease N18.30 Hypercalcemia E83.52
[2025-09-02 12:07] VITALS: BP 170/82; PULSE 73; O2SAT 96; BMI 27.1
[2025-09-02 12:20] VITALS: BP 130/70
== END 2025-09-02 12:25 | disposition home or self-care (01) ==
LOC: HO.HKA 11:55
PROVIDERS: PCP Nurse Practitioner Primary Care; Visit Provider Internal Medicine Hypertension Specialist
DX: N18.30 Chronic kidney disease, stage 3 unspecified (principal); E83.52 Hypercalcemia
CPT/HCPCS: 99214

== ENCOUNTER → 2025-09-02 11:54 | Outpatient (BNVA) | payer MEDICARE, MEDICAID, SELFPAY | PROVIDERS: PCP Nurse Practitioner Primary Care; Visit Provider Internal Medicine Hypertension Specialist | DX: I12.9 Hypertensive chronic kidney disease with stage 1 through stage 4 chronic kidney disease, or unspecified chronic kidney disease (principal); N18.30 Chronic kidney disease, stage 3 unspecified; E11.22 Type 2 diabetes mellitus with diabetic chronic kidney disease; E83.52 Hypercalcemia | CPT/HCPCS: 99212 ==